=== PATIENT | female | born 1980 | race Caucasian/White ===

== ENCOUNTER 2018-09-21 23:10 | Inpatient (IN) | payer BC ==
[2018-09-22] MEDS ORDERED: CATAPRES ONE (00:19)
[2018-09-22] MEDS ORDERED: CATAPRES PO ONE (00:19)
[2018-09-22 00:50] LABS: Basophils # (Auto) 0.1 K/mm3 (0.0-0.1); Basophils % (Auto) 1.5 % (0.0-1.8); Eosinophils # (Auto) 0.1 K/mm3 (0.0-0.4); Eosinophils % (Auto) 2.6 % (0.0-4.3); Hematocrit 27.2 % (30.3-42.9); Hemoglobin 8.4 gm/dl (10.1-14.3); Lymphocytes # (Auto) 1.7 K/mm3 (1.2-5.4); Mean Corpuscular HGB Conc 31 % (30-34); Monocytes # (Auto) 0.3 K/mm3 (0.0-0.8); Monocytes % (Auto) 7.3 % (0.0-7.3); Platelet Count 288 K/mm3 (140-440); Red Blood Count 3.98 M/mm3 (3.65-5.03)
[2018-09-22 00:52] LABS: Mean Corpuscular Volume 69 fl (79-97); Red Cell Distribution Width 22.3 % (13.2-15.2)
[2018-09-22 02:03] LABS: Calcium 9.2 mg/dL (8.4-10.2)
--- NOTE | 2018-09-22 02:10 | Emergency Department Report ---
ED Shortness of Breath HPI - General Chief Complaint: Dyspnea/Respdistress Stated Complaint: GLORIA/CHEST TIGHTNESS/COUGH Time Seen by Provider: 09/22/18 01:02 Source: patient Mode of arrival: Ambulatory Limitations: No Limitations - History of Present Illness Initial Comments: 38-year-old female with no past medical history presents to ED with worsening s hortness of breath over the last 2 weeks. Patient states symptoms initially began approximately 6 months ago, but have been intermittent. Patient reports over the last 2 weeks she is having worsening dyspnea, orthopnea, dry cough. Denies fever and chest pain. Denies leg pain and swelling. No PCP MD Complaint: shortness of breath -: week(s) (2) Severity: moderate Consistency: intermittent Worsens With: lying flat, exertion Treatments Prior to Arrival: none - Related Data Home Medications Medication Instructions Recorded Confirmed Last Taken No Known Home Medications [No 09/22/18 09/22/18 Unknown Reported Home Medications] Allergies Allergy/AdvReac Type Severity Reaction Status Date / Time No Known Allergies Allergy Unverified 09/21/18 23:13 ED Review of Systems ROS: Stated complaint: GLORIA/CHEST TIGHTNESS/COUGH Other details as noted in HPI Comment: All other systems reviewed and negative Constitutional: denies: chills, fever Respiratory: cough, orthopnea, SOB with exertion, wheezing Cardiovascular: denies: chest pain Musculoskeletal: other (denies leg pain and swelling) ED Past Medical Hx - Past Medical History Previous Medical History?: No - Surgical History Past Surgical History?: No - Social History Smoking Status: Never Smoker Substance Use Type: None - Medications Home Medications: Home Medications Medication Instructions Recorded Confirmed Last Taken Type No Known Home Medications [No 09/22/18 09/22/18 Unknown History Reported Home Medications] ED Physical Exam - General Limitations: No Limitations General appearance: alert, in no apparent distress - Head Head exam: Present: atraumatic, normocephalic - Eye Eye exam: Present: normal appearance - ENT ENT exam: Present: mucous membranes moist - Neck Neck exam: Present: normal inspection - Respiratory Respiratory exam: Present: normal lung sounds bilaterally. Absent: respiratory distress - Cardiovascular Cardiovascular Exam: Present: regular rate, normal rhythm - GI/Abdominal GI/Abdominal exam: Present: soft. Absent: distended, tenderness - Extremities Exam Extremities exam: Absent: pedal edema, calf tenderness - Neurological Exam Neurological exam: Present: alert, oriented X3 - Psychiatric Psychiatric exam: Present: normal affect, normal mood - Skin Skin exam: Present: warm, dry, intact, normal color ED Course Vital Signs 09/21/18 09/22/18 09/22/18 23:30 00:05 00:20 Temperature 98.3 F 98.3 F Pulse Rate 93 H 93 H 93 H Respiratory 18 24 Rate Blood Pressure 191/121 200/133 200/133 Blood Pressure [Left] O2 Sat by Pulse 100 100 Oximetry 09/22/18 09/22/18 09/22/18 00:45 00:48 01:00 Temperature Pulse Rate 100 H Respiratory 16 Rate Blood Pressure 198/130 Blood Pressure 209/107 [Left] O2 Sat by Pulse 100 100 100 Oximetry 09/22/18 09/22/18 09/22/18 01:15 01:30 01:45 Temperature Pulse Rate Respiratory Rate Blood Pressure 189/127 191/122 193/125 Blood Pressure [Left] O2 Sat by Pulse 100 100 100 Oximetry 09/22/18 09/22/18 09/22/18 02:03 02:15 02:30 Temperature Pulse Rate Respiratory Rate Blood Pressure 193/125 193/125 183/116 Blood Pressure [Left] O2 Sat by Pulse 100 100 100 Oximetry 09/22/18 09/22/18 09/22/18 02:45 03:00 03:15 Temperature Pulse Rate Respiratory Rate Blood Pressure 172/109 177/108 169/108 Blood Pressure [Left] O2 Sat by Pulse 100 100 100 Oximetry 09/22/18 09/22/18 09/22/18 03:30 03:45 04:00 Temperature Pulse Rate Respiratory Rate Blood Pressure 167/105 161/97 172/113 Blood Pressure [Left] O2 Sat by Pulse 100 99 99 Oximetry 09/22/18 09/22/18 09/22/18 04:15 04:30 05:39 Temperature Pulse Rate Respiratory 18 Rate Blood Pressure 164/96 161/97 Blood Pressure [Left] O2 Sat by Pulse 100 100 98 Oximetry ED Medical Decision Making - Lab Data Result diagrams: 09/22/18 00:29 09/22/18 00:29 - EKG Data -: EKG Interpreted by Co EKG shows normal: sinus rhythm, axis, intervals, QRS complexes Rate: normal - EKG Data Interpretation: other (inferolateral T wave inversions) - Radiology Data Radiology results: report reviewed, image reviewed - Medical Decision Making - 2 wk hx of worsening TIJERINA, nonproductive cough - also reports, PND and orthopnea - no leg swelling - pt severely hypertensive, 190s/100s; hydralazine given - EKG shows LVH, T wave inversions; trop normal - BNP 3,800 w/ cardiomegaly - CTA neg for PE, but does show small amt of pulmonary edema - likely new onset CHF given symptoms, uncontrolled HTN, elevated BNP - will admit to hospitalist for further workup - Differential Diagnosis pneumonia, pulm edema, PE Critical Care Time: Yes Critical care time in (mins) excluding proc time.: 35 Critical care attestation.: If time is entered above; I have spent that time in minutes in the direct care of this critically ill patient, excluding procedure time. Critical Care Time: 35 minutes ED Disposition Clinical Impression: Hypertensive urgency, New onset of congestive heart failure Disposition: OP ADMIT IP TO THIS HOSP Is pt being admited?: Yes Condition: Stable Referrals: MARCELO MANDUJANO MD [Primary Care Provider] - 3-5 Days Time of Disposition: 05:39
--- NOTE | 2018-09-22 02:27 | XRay Report ---
PROCEDURE: XR CHEST ROUTINE 2V TECHNIQUE: PA and lateral chest radiographs were obtained. HISTORY: GLORIA COMPARISONS: None. FINDINGS: Heart: Normal. Mediastinum/Vessels: Normal. Lungs/Pleural space: Lungs are expanded. There are no infiltrates, effusions or pneumothoraces.. Bony thorax: No acute osseous abnormality. IMPRESSION: Normal examination. This document is electronically signed by Hunter Collins MD., September 22 2018 02:25:30 AM ET
[2018-09-22] MEDS ORDERED: APRESOLINE IV ONE (02:54)
[2018-09-22 03:50] LABS: INR 0.95 (0.87-1.13)
[2018-09-22 03:51] LABS: Partial Thromboplastin Time 30.3 Sec. (24.2-36.6)
--- NOTE | 2018-09-22 05:32 | Cat Scan Report ---
PROCEDURE: CT ANGIOGRAM OF THE CHEST FOR PULMONARY EMBOLISM TECHNIQUE: Computerized axial tomographic angiography of the chest and pulmonary arteries was perfor med after the IV injection of iodinated nonionic contrast. The image data was postprocessed using max imum intensity projection (MIP) and 2-dimensional multiplanar reformatted (MPR) techniques. The exami nation is specifically tailored to the evaluation of the pulmonary arteries per clinical request. Au tomated exposure control, adjustment of mA and/or kV according to patient size, or iterative reconstr uction dose optimization techniques were utilized. CPT G9637, 03038 HISTORY: Shortness of breath R06.02, chest pain unspecified R07.9 , COMPARISONS: None . FINDINGS: Heart and pericardium: Heart is borderline enlarged. There is no pericardial effusion.. Thoracic aorta: There is no thoracic aortic aneurysm or dissection.. Pulmonary vasculature: Normal. No pulmonary emboli. Lymph nodes: No enlarged thoracic lymph nodes. Lungs: The lungs are expanded and clear. There are no infiltrates. There is minimal pulmonary edema at the lung bases.. Pleural space: There are tiny pleural effusions. There is no pneumothorax.. Musculoskeletal structures: No significant abnormality. Upper abdominal structures: No significant abnormality. IMPRESSION: There is no pulmonary embolism.. This document is electronically signed by Hunter Collins MD., September 22 2018 05:30:12 AM ET
[2018-09-22] MEDS ORDERED: LASIX IV ONE (05:34)
--- NOTE | 2018-09-22 08:30 | History and Physical Report ---
History of Present Illness Date of examination: 09/22/18 Date of admission: 09/22/18 Chief complaint: Worsening shortness of breath for the last 2 weeks History of present illness: -year-old -[place] female patient with no significant past medical history presented to the emergency room with worsening shortness of breath of 2 weeks' duration. Patient has been having shortness of breath intermittently for the last 5-6 months however symptoms became worse last 2 weeks patient also complains of reduced effort tolerance orthopnea and mild cough Patient has no cardiac history, not on any medications Denies chest pain or palpitations, no nausea vomiting or abdominal pain No history of fever, no history of bronchial asthma or any respiratory problems Initial evaluation with chest x-ray is negative, elevated D dimers, CTA chest negative for PE No evidence of pulmonary congestion BNP was elevated,3842, first set of cardiac enzymes negative EKG no acute ST-T changes Past History Past Medical History: No medical history Past Surgical History: Other (tubal ligation) Social history: lives with family, alcohol abuse (occasional), full code. denies: smoking, prescription drug abuse, IV drug use Family history: hypertension Medications and Allergies Allergies Allergy/AdvReac Type Severity Reaction Status Date / Time No Known Allergies Allergy Unverified 09/21/18 23:13 Home Medications Medication Instructions Recorded Confirmed Last Taken Type No Known Home Medications [No 09/22/18 09/22/18 Unknown History Reported Home Medications] Review of Systems Constitutional: fatigue, weakness, no weight loss, no weight gain, no fever, no chills Ears, nose, mouth and throat: no nasal congestion, no nasal discharge Cardiovascular: orthopnea, shortness of breath, dyspnea on exertion, no chest pain, no palpitations, no edema, no syncope, no paroxysmal nocturnal dyspnea Respiratory: cough, shortness of breath, dyspnea on exertion Gastrointestinal: no abdominal pain, no nausea, no vomiting Musculoskeletal: no myalgias, no arthritis Integumentary: no rash, no lesions Neurological: no seizures, no syncope Psychiatric: no anxiety, no depression Endocrine: no cold intolerance, no heat intolerance, no polydipsia, no polyuria Hematologic/Lymphatic: no easy bruising, no easy bleeding Allergic/Immunologic: no urticaria, no allergic rhinitis Exam - Constitutional Vitals: Temp Pulse Resp BP Pulse Ox 97.6 F 100 H 18 169/105 98 09/22/18 07:36 09/22/18 00:48 09/22/18 05:39 09/22/18 07:00 09/22/18 07:00 General appearance: Present: no acute distress, well-nourished - EENT Eyes: Present: PERRL, EOM intact - Neck Neck: Present: supple, normal ROM - Respiratory Respiratory: bilateral: diminished, negative: rales, rhonchi, wheezing - Cardiovascular Rhythm: regular Heart Sounds: Present: S1 & S2 - Extremities Extremities: no ischemia, No edema - Abdominal General gastrointestinal: Present: soft, non-tender, non-distended, normal bowel sounds - Integumentary Integumentary: Present: clear, warm - Musculoskeletal Musculoskeletal: strength equal bilaterally - Psychiatric Psychiatric: appropriate mood/affect, cooperative - Neurologic Neurologic: CNII-XII intact, moves all extremities Results - Labs CBC & Chem 7: 09/22/18 00:29 09/22/18 00:29 Labs: Abnormal lab results 09/22/18 09/22/18 09/22/18 Range/Units 00:29 00:29 01:39 WBC 4.1 L (4.5-11.0) K/mm3 Hgb 8.4 L (10.1-14.3) gm/dl Hct 27.2 L (30.3-42.9) % MCV 69 L (79-97) fl MCH 21 L (28-32) pg RDW 22.3 H (13.2-15.2) % Lymph % (Auto) 43.0 H (13.4-35.0) % D-Dimer 277.79 H (0-234) ng/mlDDU Carbon Dioxide 21 L (22-30) mmol/L NT-Pro-B Natriuret Pep (0-450) pg/mL 09/22/18 Range/Units 01:39 WBC (4.5-11.0) K/mm3 Hgb (10.1-14.3) gm/dl Hct (30.3-42.9) % MCV (79-97) fl MCH (28-32) pg RDW (13.2-15.2) % Lymph % (Auto) (13.4-35.0) % D-Dimer (0-234) ng/mlDDU Carbon Dioxide (22-30) mmol/L NT-Pro-B Natriuret Pep 3842 H (0-450) pg/mL Assessment and Plan --Possible cardiomyopathy; congestive heart failure Unknown ejection fraction, diuretics, beta blockers, guido inhibitors, nitrates as needed Input and output monitoring, low sodium diet, echocardiogram for LV function ejection fraction Cardiology evaluation if any abnormalities noted --Anemia; probably iron deficiency Iron panel, iron supplements, supportive care --Elevated D dimers; negative PE on CTA Check lower extremity Doppler to rule out DVT --DVT prophylaxis; Lovenox We'll monitor the patient closely and adjust management as needed
[2018-09-22] MEDS: ZESTRIL PO SCH (12:00)
[2018-09-22] MEDS: COREG PO SCH ×2 (12:00→21:20)
[2018-09-22] MEDS: PEPCID PO SCH ×2 (12:00→21:20)
[2018-09-22] MEDS: LOVENOX SUB-Q SCH (21:19)
[2018-09-22] MEDS ORDERED: TYLENOL PO PRN (22:21)
[2018-09-22] MEDS: CLARITIN PO SCH (22:26)
[2018-09-23] MEDS: COREG PO SCH ×2 (09:32→21:12)
[2018-09-23] MEDS: ZESTRIL PO SCH (09:32)
[2018-09-23] MEDS: LASIX IV SCH (09:33)
[2018-09-23] MEDS: PEPCID PO SCH ×2 (09:33→21:12)
--- NOTE | 2018-09-23 12:43 | Progress Note ---
Assessment and Plan Assessment and plan: --Upper respiratory symptoms and cough and congestion Antipyretics, antihistamine, cough medicine No need of antibiotics as patient is afebrile, no leukocytosis, chest x-ray normal --Possible cardiomyopathy; congestive heart failure Echocardiogram for ejection fraction, continue diuretics, beta blockers, guido inhibitors. Cardiology evaluation if any abnormalities noted on echo --Anemia; probably iron deficiency Iron panel, iron supplements, supportive care --Elevated D dimers; negative PE on CTA Check lower extremity Doppler to rule out DVT --DVT prophylaxis; Lovenox We'll monitor the patient closely and adjust management as needed. Patient is stable to be transferred out of telemetry to medical floor Plan of care reviewed with the patient and family member at the bedside and her nurse History Interval history: Patient seen and examined medical records reviewed Patient feels slightly better denies any chest pain or shortness of breath Complains of some cough and congestion Alert awake oriented 3 Vital signs noted Hospitalist Physical - Constitutional Vitals: Temp Pulse Resp BP Pulse Ox 98.3 F 82 18 154/95 98 09/23/18 09:00 09/23/18 09:00 09/23/18 09:00 09/23/18 09:00 09/23/18 09:00 General appearance: Present: no acute distress, well-nourished - EENT Eyes: Present: PERRL, EOM intact - Neck Neck: Present: supple, normal ROM - Respiratory Respiratory effort: normal Respiratory: bilateral: diminished, negative: rales, rhonchi, wheezing - Cardiovascular Rhythm: regular Heart Sounds: Present: S1 & S2 - Extremities Extremities: no ischemia, No edema - Abdominal General gastrointestinal: soft, non-tender, non-distended, normal bowel sounds - Integumentary Integumentary: Present: clear, warm - Psychiatric Psychiatric: appropriate mood/affect, cooperative - Neurologic Neurologic: CNII-XII intact, moves all extremities Results - Labs CBC & Chem 7: 09/22/18 00:29 09/22/18 00:29 Labs: Laboratory Last Values WBC 4.1 K/mm3 (4.5-11.0) L 09/22/18 00:29 RBC 3.98 M/mm3 (3.65-5.03) 09/22/18 00:29 Hgb 8.4 gm/dl (10.1-14.3) L 09/22/18 00:29 Hct 27.2 % (30.3-42.9) L 09/22/18 00:29 MCV 69 fl (79-97) L 09/22/18 00:29 MCH 21 pg (28-32) L 09/22/18 00:29 MCHC 31 % (30-34) 09/22/18 00: RDW 22.3 % (13.2-15.2) H 09/22/18 00:29 Plt Count 288 K/mm3 (140-440) 09/22/18 00:29 Lymph % (Auto) 43.0 % (13.4-35.0) H 09/22/18 00:29 [place] % (Auto) 7.3 % (0.0-7.3) 09/22/18 00: Eos % (Auto) 2.6 % (0.0-4.3) 09/22/18 00: Baso % (Auto) 1.5 % (0.0-1.8) 09/22/18 00: Lymph # 1.7 K/mm3 (1.2-5.4) 09/22/18 00:29 [place] # 0.3 K/mm3 (0.0-0.8) 09/22/18 00:29 Eos # 0.1 K/mm3 (0.0-0.4) 09/22/18 00: Baso # 0.1 K/mm3 (0.0-0.1) 09/22/18 00: Seg Neutrophils % 45.6 % (40.0-70.0) 09/22/18 00: Seg Neutrophils # 1.9 K/mm3 (1.8-7.7) 09/22/18 00:29 PT 13.3 Sec. (12.2-14.9) 09/22/18 01:39 INR 0.95 (0.87-1.13) 09/22/18 01:39 APTT 30.3 Sec. (24.2-36.6) 09/22/18 01:39 D-Dimer 277.79 ng/mlDDU (0-234) H 09/22/18 01:39 Sodium 139 mmol/L (137-145) 09/22/18 00:29 Potassium 3.8 mmol/L (3.6-5.0) 09/22/18 00:29 Chloride 104.2 mmol/L (98-107) 09/22/18 00:29 Carbon Dioxide 21 mmol/L (22-30) L 09/22/18 00:29 Anion Gap 18 mmol/L 09/22/18 00:29 BUN 17 mg/dL (7-17) 09/22/18 00:29 Creatinine 1.2 mg/dL (0.7-1.2) 09/22/18 00:29 Estimated GFR 50 ml/min 09/22/18 00:29 BUN/Creatinine Ratio 14 % 09/22/18 00:29 Glucose 82 mg/dL (65-100) 09/22/18 00:29 Calcium 9.2 mg/dL (8.4-10.2) 09/22/18 00:29 Troponin T < 0.010 ng/mL (0.00-0.029) 09/22/18 01:39 NT-Pro-B Natriuret Pep 3842 pg/mL (0-450) H 09/22/18 01:39 HCG, Qual Negative (Negative) 09/22/18 00:29 Active Medications - Current Medications Current Medications: Generic Name Dose Route Start Last Admin Trade Name Freq PRN Reason Stop Dose Admin Acetaminophen 650 mg 09/22/18 22:21 09/22/18 22:25 Tylenol PO 650 mg Q4H PRN Administration Pain, Mild (1-3) Carvedilol 6.25 mg 09/22/18 10:00 09/23/18 09:32 Coreg PO 6.25 mg BID CELSO Administration Enoxaparin Sodium 40 mg 09/22/18 22:00 09/22/18 21:19 Lovenox SUB-Q 40 mg QDAY@2200 CELOS Administration Famotidine 10 mg 09/23/18 10:00 09/23/18 09:33 Pepcid PO 10 mg BID CELSO Administration Furosemide 40 mg 09/23/18 10:00 09/23/18 09:33 Lasix IV 40 mg QDAY CELSO Administration Lisinopril 10 mg 09/22/18 10:00 09/23/18 09:32 Zestril PO 10 mg QDAY CELSO Administration Loratadine 10 mg 09/22/18 22:20 09/22/18 22:26 Claritin PO Not Given QDAY CELSO
[2018-09-23] MEDS: CLARITIN PO SCH (13:45)
--- NOTE | 2018-09-23 17:30 | Vascular Lab Report ---
PROCEDURE: VL VENOUS DUPLEX LE BILAT TECHNIQUE: Ultrasound deep venous system bilateral lower extremities HISTORY: elevated d dimers, evaluate for DVT COMPARISONS: FINDINGS: Ultrasound deep venous system bilateral lower extremities demonstrates normal sonographic appearance of the deep venous system from the common femoral through the popliteal and visualized calf veins. No rmal vascular waveforms on pulsed and color Doppler evaluation IMPRESSION: Negative. No evidence for deep venous thrombosis. This document is electronically signed by Wayne Garcia MD., September 23 2018 05:28:53 PM ET
[2018-09-23] MEDS: LOVENOX SUB-Q SCH (21:12)
[2018-09-23] MEDS: TESSALON PERLES PO SCH (21:12)
[2018-09-24] MEDS: TESSALON PERLES PO SCH ×2 (05:30→15:28)
[2018-09-24] MEDS: COREG PO SCH ×2 (10:08→21:31)
[2018-09-24] MEDS: CLARITIN PO SCH (10:08)
[2018-09-24] MEDS: LASIX IV SCH (10:08)
[2018-09-24] MEDS: ZESTRIL PO SCH (10:09)
[2018-09-24] MEDS: PEPCID PO SCH ×2 (10:09→21:31)
--- NOTE | 2018-09-24 11:24 | Progress Note ---
Assessment and Plan Assessment and plan: --Upper respiratory symptoms and cough and congestion Antipyretics, antihistamine, cough medicine Zithromax, supportive care --Possible cardiomyopathy; congestive heart failure Echocardiogram for ejection fraction, continue diuretics, beta blockers, guido inhibitors. Low-sodium diet, fluid restriction, cardiology evaluation if needed --Anemia; probably iron deficiency Iron panel, iron supplements, supportive care --Elevated D dimers; negative PE , negative JVD --DVT prophylaxis; Lovenox We'll monitor the patient closely and adjust management as needed. Patient is stable to be transferred out of telemetry to medical floor Plan of care reviewed with the patient and family member at the bedside and her nurse History Interval history: Patient seen and examined and medical records. Patient feels better mild upper respiratory symptoms and cough Alert awake oriented 3 not in acute distress vital signs noted Hospitalist Physical - Constitutional Vitals: Temp Pulse Resp BP Pulse Ox 98.3 F 88 18 151/90 100 09/24/18 09:05 09/24/18 09:19 09/24/18 09:05 09/24/18 09:05 09/24/18 09:05 General appearance: Present: no acute distress, well-nourished - EENT Eyes: Present: PERRL, EOM intact - Neck Neck: Present: supple, normal ROM - Respiratory Respiratory effort: normal Respiratory: bilateral: diminished, rales, negative: rhonchi, wheezing - Cardiovascular Rhythm: regular Heart Sounds: Present: S1 & S2 - Extremities Extremities: no ischemia, No edema - Abdominal General gastrointestinal: soft, non-tender, non-distended, normal bowel sounds - Integumentary Integumentary: Present: clear, warm - Psychiatric Psychiatric: appropriate mood/affect, cooperative - Neurologic Neurologic: CNII-XII intact, moves all extremities Results - Labs CBC & Chem 7: 09/22/18 00:29 09/22/18 00:29 Labs: Laboratory Last Values WBC 4.1 K/mm3 (4.5-11.0) L 09/22/18 00:29 RBC 3.98 M/mm3 (3.65-5.03) 09/22/18 00:29 Hgb 8.4 gm/dl (10.1-14.3) L 09/22/18 00:29 Hct 27.2 % (30.3-42.9) L 09/22/18 00:29 MCV 69 fl (79-97) L 09/22/18 00:29 MCH 21 pg (28-32) L 09/22/18 00:29 MCHC 31 % (30-34) 09/22/18 00: RDW 22.3 % (13.2-15.2) H 09/22/18 00:29 Plt Count 288 K/mm3 (140-440) 09/22/18 00:29 Lymph % (Auto) 43.0 % (13.4-35.0) H 09/22/18 00:29 [place] % (Auto) 7.3 % (0.0-7.3) 09/22/18 00: Eos % (Auto) 2.6 % (0.0-4.3) 09/22/18 00: Baso % (Auto) 1.5 % (0.0-1.8) 09/22/18 00: Lymph # 1.7 K/mm3 (1.2-5.4) 09/22/18 00:29 [place] # 0.3 K/mm3 (0.0-0.8) 09/22/18 00:29 Eos # 0.1 K/mm3 (0.0-0.4) 09/22/18 00:29 Baso # 0.1 K/mm3 (0.0-0.1) 09/22/18 00:29 Seg Neutrophils % 45.6 % (40.0-70.0) 09/22/18 00: Seg Neutrophils # 1.9 K/mm3 (1.8-7.7) 09/22/18 00:29 PT 13.3 Sec. (12.2-14.9) 09/22/18 01:39 INR 0.95 (0.87-1.13) 09/22/18 01:39 APTT 30.3 Sec. (24.2-36.6) 09/22/18 01:39 D-Dimer 277.79 ng/mlDDU (0-234) H 09/22/18 01:39 Sodium 139 mmol/L (137-145) 09/22/18 00:29 Potassium 3.8 mmol/L (3.6-5.0) 09/22/18 00:29 Chloride 104.2 mmol/L (98-107) 09/22/18 00:29 Carbon Dioxide 21 mmol/L (22-30) L 09/22/18 00:29 Anion Gap 18 mmol/L 09/22/18 00:29 BUN 17 mg/dL (7-17) 09/22/18 00:29 Creatinine 1.2 mg/dL (0.7-1.2) 04 00:29 Estimated GFR 50 ml/min 09/22/18 00:29 BUN/Creatinine Ratio 14 % 09/22/18 00:29 Glucose 82 mg/dL (65-100) 09/22/18 00:29 Calcium 9.2 mg/dL (8.4-10.2) 09/22/18 00:29 Troponin T < 0.010 ng/mL (0.00-0.029) 09/22/18 01:39 NT-Pro-B Natriuret Pep 3842 pg/mL (0-450) H 09/22/18 01:39 HCG, Qual Negative (Negative) 09/22/18 00:29 Active Medications - Current Medications Current Medications: Generic Name Dose Route Start Last Admin Trade Name Freq PRN Reason Stop Dose Admin Acetaminophen 650 mg 09/22/18 22:21 09/22/18 22:25 Tylenol PO 650 mg Q4H PRN Administration Pain, Mild (1-3) Benzonatate 100 mg 09/23/18 22:00 09/24/18 05:30 Tessalon Perles PO 100 mg Q8HR CELSO Administration Carvedilol 6.25 mg 09/22/18 10:00 09/24/18 10:08 Coreg PO 6.25 mg BID CELSO Administration Enoxaparin Sodium 40 mg 09/22/18 22:00 09/23/18 21:12 Lovenox SUB-Q 40 mg QDAY@2200 CELSO Administration Famotidine 10 mg 09/23/18 10:00 09/24/18 10:09 Pepcid PO 10 mg BID CELSO Administration Furosemide 40 mg 09/23/18 10:00 09/24/18 10:08 Lasix IV 40 mg QDAY CELSO Administration Lisinopril 10 mg 09/22/18 10:00 09/24/18 10:09 Zestril PO 10 mg QDAY CELSO Administration Loratadine 10 mg 09/22/18 22:20 09/24/18 10:08 Claritin PO 10 mg QDAY CELSO Administration
[2018-09-24] MEDS ORDERED: ZITHROMAX PO ONE (14:00)
[2018-09-24] MEDS: LOVENOX SUB-Q SCH (21:36)
[2018-09-25 05:55] LABS: Basophils # (Auto) 0.1 K/mm3 (0.0-0.1); Basophils % (Auto) 1.4 % (0.0-1.8); Eosinophils # (Auto) 0.1 K/mm3 (0.0-0.4); Eosinophils % (Auto) 3.1 % (0.0-4.3); Hemoglobin 8.2 gm/dl (10.1-14.3); Lymphocytes # (Auto) 1.7 K/mm3 (1.2-5.4); Lymphocytes % (Auto) 35.9 % (13.4-35.0); Mean Corpuscular HGB Conc 31 % (30-34); Monocytes # (Auto) 0.4 K/mm3 (0.0-0.8); Monocytes % (Auto) 9.5 % (0.0-7.3); Platelet Count 268 K/mm3 (140-440); Red Blood Count 3.81 M/mm3 (3.65-5.03)
[2018-09-25 06:04] LABS: Mean Corpuscular Volume 68 fl (79-97); Red Cell Distribution Width 21.9 % (13.2-15.2)
[2018-09-25 06:08] LABS: Calcium 8.5 mg/dL (8.4-10.2)
[2018-09-25] MEDS: ZESTRIL PO SCH (10:06)
[2018-09-25] MEDS: PEPCID PO SCH ×2 (10:06→21:42)
[2018-09-25] MEDS: ZITHROMAX PO SCH (10:06)
[2018-09-25] MEDS: LASIX IV SCH (10:06)
[2018-09-25] MEDS: CLARITIN PO SCH (10:06)
[2018-09-25] MEDS: COREG PO SCH ×2 (10:07→21:41)
[2018-09-25] MEDS ORDERED: APRESOLINE IV PRN (11:23)
--- NOTE | 2018-09-25 11:25 | Progress Note ---
Assessment and Plan Assessment and plan: --Newly Diagnosed cardiomyopathy; LVEF 25-30% Continue Lasix, beta blockers, Kelton inhibitors, input output monitoring Low-sodium diet, fluid restriction, cardiology consult --Anemia; probably iron deficiency Iron panel, iron supplements, supportive care --Upper respiratory symptoms and cough and congestion Antipyretics, antihistamine, cough medicine Zithromax, supportive care --Hypertension; moderate control, continue beta blockers and kelton inhibitors hydralazine --Elevated D dimers; negative PE , negative JVD --DVT prophylaxis; Lovenox Continue current management Follow-up cardiology evaluation and recommendations Possible discharge in 1-2 days if stable Plan of care reviewed with the patient and her nurse History Interval history: Patient seen and examined, medical records reviewed Patient feels better no new complaints Echocardiogram revealed 25-30% ejection fraction Patient has no cardiac history Alert awake oriented 3 Vital signs noted Hospitalist Physical - Constitutional Vitals: Temp Pulse Resp BP Pulse Ox 98.2 F 88 18 168/104 100 09/25/18 08:32 09/25/18 10:07 09/25/18 10:41 09/25/18 10:07 09/25/18 08:32 General appearance: Present: no acute distress, well-nourished - EENT Eyes: Present: PERRL, EOM intact - Neck Neck: Present: supple, normal ROM - Respiratory Respiratory effort: normal Respiratory: bilateral: diminished, negative: rales, rhonchi, wheezing - Cardiovascular Rhythm: regular Heart Sounds: Present: S1 & S2 - Extremities Extremities: no ischemia, No edema - Abdominal General gastrointestinal: soft, non-tender, non-distended, normal bowel sounds - Integumentary Integumentary: Present: clear, warm - Psychiatric Psychiatric: appropriate mood/affect, cooperative - Neurologic Neurologic: CNII-XII intact, moves all extremities Results - Labs CBC & Chem 7: 09/25/18 04:50 09/25/18 04:50 Labs: Laboratory Last Values WBC 4.7 K/mm3 (4.5-11.0) 09/25/18 04:50 RBC 3.81 M/mm3 (3.65-5.03) 09/25/18 04:50 Hgb 8.2 gm/dl (10.1-14.3) L 09/25/18 04:50 Hct 26.0 % (30.3-42.9) L 09/25/18 04:50 MCV 68 fl (79-97) L 09/25/18 04:50 MCH 21 pg (28-32) L 09/25/18 04:50 MCHC 31 % (30-34) 09/25/18 04:50 RDW 21.9 % (13.2-15.2) H 09/25/18 04:50 Plt Count 268 K/mm3 (140-440) 09/25/18 04:50 Lymph % (Auto) 35.9 % (13.4-35.0) H 09/25/18 04:50 [place] % (Auto) 9.5 % (0.0-7.3) H 09/25/18 04:50 Eos % (Auto) 3.1 % (0.0-4.3) 09/25/18 04:50 Baso % (Auto) 1.4 % (0.0-1.8) 09/25/18 04:50 Lymph # 1.7 K/mm3 (1.2-5.4) 09/25/18 04:50 [place] # 0.4 K/mm3 (0.0-0.8) 09/25/18 04:50 Eos # 0.1 K/mm3 (0.0-0.4) 09/25/18 04:50 Baso # 0.1 K/mm3 (0.0-0.1) 09/25/18 04:50 Seg Neutrophils % 50.1 % (40.0-70.0) 09/25/18 04:50 Seg Neutrophils # 2.3 K/mm3 (1.8-7.7) 09/25/18 04:50 PT 13.3 Sec. (12.2-14.9) 09/22/18 01:39 INR 0.95 (0.87-1.13) 09/22/18 01:39 APTT 30.3 Sec. (24.2-36.6) 09/22/18 01:39 D-Dimer 277.79 ng/mlDDU (0-234) H 09/22/18 01:39 Sodium 137 mmol/L (137-145) 09/25/18 04:50 Potassium 4.3 mmol/L (3.6-5.0) 09/25/18 04:50 Chloride 102.1 mmol/L (98-107) 09/25/18 04:50 Carbon Dioxide 24 mmol/L (22-30) 09/25/18 04:50 Anion Gap 15 mmol/L 09/25/18 04:50 BUN 19 mg/dL (7-17) H 09/25/18 04:50 Creatinine 1.2 mg/dL (0.7-1.2) 09/25/18 04:50 Estimated GFR 50 ml/min 09/25/18 04:50 BUN/Creatinine Ratio 16 % 09/25/18 04:50 Glucose 83 mg/dL (65-100) 09/25/18 04:50 Calcium 8.5 mg/dL (8.4-10.2) 09/25/18 04:50 Troponin T < 0.010 ng/mL (0.00-0.029) 09/22/18 01:39 NT-Pro-B Natriuret Pep 674.2 pg/mL (0-450) H 09/25/18 04:50 HCG, Qual Negative (Negative) 09/22/18 00:29 Active Medications - Current Medications Current Medications: Generic Name Dose Route Start Last Admin Trade Name Freq PRN Reason Stop Dose Admin Acetaminophen 650 mg 09/22/18 22:21 09/22/18 22:25 Tylenol PO 650 mg Q4H PRN Administration Pain, Mild (1-3) Azithromycin 250 mg 09/25/18 10:00 09/25/18 10:06 Zithromax PO 250 mg QDAY CELSO Administration Carvedilol 6.25 mg 09/22/18 10:00 09/25/18 10:07 Coreg PO 6.25 mg BID CELSO Administration Enoxaparin Sodium 40 mg 09/22/18 22:00 09/24/18 21:36 Lovenox SUB-Q 40 mg QDAY@2200 CELSO Administration Famotidine 10 mg 09/23/18 10:00 09/25/18 10:06 Pepcid PO 10 mg BID CELSO Administration Furosemide 40 mg 09/23/18 10:00 09/25/18 10:06 Lasix IV 40 mg QDAY CELSO Administration Guaifenesin 10 ml 09/24/18 20:20 Guaifenesin Dm Syrup PO Q4H PRN Cough Hydralazine HCl 25 mg 09/25/18 14:00 Apresoline PO Q8HR CELSO Hydralazine HCl 10 mg 09/25/18 11:23 Apresoline IV Q4H PRN Hypertension Lisinopril 10 mg 09/22/18 10:00 09/25/18 10:06 Zestril PO 10 mg QDAY CELSO Administration Lisinopril 40 mg 09/26/18 10:00 Zestril PO DAILY CELSO Loratadine 10 mg 09/22/18 22:20 09/25/18 10:06 Claritin PO 10 mg QDAY CELSO Administration
[2018-09-25] MEDS ORDERED: APRESOLINE PO SCH (14:00)
[2018-09-25 14:34] LABS: Iron 17 ug/dL (37-170); Total Iron Binding Capacity 382 mcg/dL (250-450)
[2018-09-25 14:35] LABS: % Iron Saturation 4.04 %
--- NOTE | 2018-09-25 18:46 | Event Note ---
Date: 09/25/18 Radio Announcer advised to add spiranolactone to the treatment plan. Spiranolactone 12.5 mg added,Pending cardiology evaluation. Will f/u cardiology evaln and recommendations. Possible discharge home tomorrow if stable.
[2018-09-25] MEDS: ALDACTONE PO SCH (18:51)
--- NOTE | 2018-09-25 19:16 | Consultation ---
History of Present Illness Consult date: 09/25/18 Consult reason: congestive heart failure, shortness of breath History of present illness: The patient is a 38-year-old woman with a long history of hypertension, for which she states she managed conservatively. She presented to the hospital 3 days ago with shortness of breath. Chest x-ray showed cardiomegaly, but minimal to no significant interstitial edema. EKG was in normal sinus rhythm, left ventricular hypertrophy and nonspecific repolarization abnormalities of LVH. An echocardiogram was ordered which showed a dilated cardiomyopathy, ejection fraction 25-30%. This is a new finding, with no prior history. The patient has responded to diuretic therapy and blood pressure control while in the hospital. Today, she looks and feels well, wants to go home. There is no chest pain, no palpitations, no lower extremity edema. No history of syncope. Past History Past Medical History: hypertension Past Surgical History: Other (tubal ligation) Social history: lives with family, alcohol abuse (occasional), full code. denies: smoking, prescription drug abuse, IV drug use Family history: hypertension Medications and Allergies Allergies Allergy/AdvReac Type Severity Reaction Status Date / Time No Known Allergies Allergy Unverified 09/21/18 23:13 Home Medications Medication Instructions Recorded Confirmed Last Taken Type No Known Home Medications [No 09/22/18 09/22/18 Unknown History Reported Home Medications] Active Meds: Active Medications Acetaminophen (Tylenol) 650 mg PO Q4H PRN PRN Reason: Pain, Mild (1-3) Last Admin: 09/22/18 22:25 Dose: 650 mg Documented by: Azithromycin (Zithromax) 250 mg PO QDAY [facility] Last Admin: 09/25/18 10:06 Dose: 250 mg Documented by: Carvedilol (Coreg) 6.25 mg PO BID [facility] Last Admin: 09/25/18 10:07 Dose: 6.25 mg Documented by: Enoxaparin Sodium (Lovenox) 40 mg SUB-Q QDAY@2200 [facility] Last Admin: 09/24/18 21:36 Dose: 40 mg Documented by: Famotidine (Pepcid) 10 mg PO BID [facility] Last Admin: 09/25/18 10:06 Dose: 10 mg Documented by: Ferrous Sulfate (Feosol) 325 mg PO BID [facility] Furosemide (Lasix) 40 mg IV QDAY [facility] Last Admin: 09/25/18 10:06 Dose: 40 mg Documented by: Guaifenesin (Guaifenesin Dm Syrup) 10 ml PO Q4H PRN PRN Reason: Cough Hydralazine HCl (Apresoline) 10 mg IV Q4H PRN PRN Reason: Hypertension Lisinopril (Zestril) 20 mg PO QDAY [facility] Loratadine (Claritin) 10 mg PO QDAY [facility] Last Admin: 09/25/18 10:06 Dose: 10 mg Documented by: Spironolactone (Aldactone) 12.5 mg PO QDAY [facility] Last Admin: 09/25/18 18:51 Dose: 12.5 mg Documented by: Review of Systems Cardiovascular: shortness of breath, no chest pain, no orthopnea, no palpitations, no rapid/irregular heart beat, no edema, no syncope, no lightheadedness Physical Examination Vital Signs Temp Pulse Resp BP Pulse Ox 98.3 F 93 H 18 191/121 100 09/21/18 23:30 09/21/18 23:30 09/21/18 23:30 09/21/18 23:30 09/21/18 23:30 General appearance: no acute distress HEENT: Positive: PERRL Neck: Positive: neck supple Cardiac: Positive: Reg Rate and Rhythm Lungs: Positive: clear to auscultation Neuro: Positive: Grossly Intact Abdomen: Positive: Soft Female genitourinary: deferred Skin: Positive: Clear Extremities: Absent: edema Results 09/25/18 04:50 09/25/18 04:50 CBC 09/25/18 Range/Units 04:50 WBC 4.7 (4.5-11.0) K/mm3 RBC 3.81 (3.65-5.03) M/mm3 Hgb 8.2 L (10.1-14.3) gm/dl Hct 26.0 L (30.3-42.9) % Plt Count 268 (140-440) K/mm3 Lymph # 1.7 (1.2-5.4) K/mm3 [place] # 0.4 (0.0-0.8) K/mm3 Eos # 0.1 (0.0-0.4) K/mm3 Baso # 0.1 (0.0-0.1) K/mm3 Comprehensive Metabolic Panel 04/08/19 Range/Units 04:50 Sodium 137 (137-145) mmol/L Potassium 4.3 (3.6-5.0) mmol/L Chloride 102.1 (98-107) mmol/L Carbon Dioxide 24 (22-30) mmol/L BUN 19 H (7-17) mg/dL Creatinine 1.2 (0.7-1.2) mg/dL Glucose 83 (65-100) mg/dL Calcium 8.5 (8.4-10.2) mg/dL EKG interpretations - Telemetry EKG Rhythm: Sinus Rhythm Assessment and Plan - Patient Problems (1) Shortness of breath Current Visit: Yes Status: Acute Plan to address problem: Patient presented with shortness of breath and uncontrolled hypertension of long-standing, echocardiogram shows a new onset dilated cardiomyopathy. Recommend medical therapy with lisinopril, carvedilol, Lasix and spironolactone. Patient looks and feels well today, once to go home and follow-up as an outpatient. We'll plan outpatient thallium stress test, otherwise continue guideline directed medical therapy for what appears to be a likely nonischemic cardiomyopathy.
[2018-09-25] MEDS: FEOSOL PO SCH (21:42)
[2018-09-25] MEDS: LOVENOX SUB-Q SCH (21:43)
--- NOTE | 2018-09-26 07:48 | Discharge Summary ---
Providers - Providers Date of Admission: 09/22/18 07:02 Date of discharge: 09/26/18 Attending physician: CELESTE YADAV 09/25/18 13:27 Consult to Physician [CONS] Routine Comment: Consulting Provider: DIXIE FRANKLIN Physician Instructions: Reason For Exam: Newly diagnosed Cardiomyopathy [EF 25-30%] Primary care physician: [facility], [place] Hospitalization Reason for admission: chest tightness/shortness of breath Condition: Stable Pertinent studies: Chest x-ray CTA chest Lower extremity venous Doppler Echocardiogram Hospital course: 38-year-old female patient with no significant past medical history not on any medications was admitted through emergency room\with worsening shortness of breath and atypical chest pain. Initial evaluation was consistent with elevated BNP and mild shortness of breath Patient was symptomatically managed with diuretics, beta blockers, kelton inhibitors Patient underwent echocardiogram which revealed new onset cardiomyopathy with ejection fraction of 25-2%. Cardiology was consulted, medications were optimized, cleared for discharge Follow-up in the office for further evaluation with possible stress test as outpatient The patient is comfortable in no new complaints Vital Signs noted physical examination is unremarkable Patient is hemodynamically and clinically stable at discharge Discharge diagnosis; --Newly Diagnosed cardiomyopathy; LVEF 25-30% Continue Lasix, beta blockers, Kelton inhibitors, input output monitoring Low-sodium diet, fluid restriction, cardiology consult --Anemia; probably iron deficiency Iron panel, iron supplements, supportive care --Upper respiratory symptoms and cough and congestion Antipyretics, antihistamine, cough medicine Zithromax, supportive care --Hypertension; moderate control, continue beta blockers and kelton inhibitors hydralazine --Elevated D dimers; negative PE , negative JVD --DVT prophylaxis; Lovenox Cleared by cardiology for discharge Follow-up per schedule, possible stress test as outpatient Disposition: TO HOME OR SELFCARE Time spent for discharge: 32 min Core Measure Documentation - Palliative Care Palliative Care/ Comfort Measures: Not Applicable - Core Measures Any of the following diagnoses?: heart failure - Heart Failure Discharge Requirements KELTON/ARB for LVSD if EF <40%: Yes Beta mohit at discharge: Yes Exam - Constitutional Vitals: Temp Pulse Resp BP Pulse Ox 98.0 F 84 18 132/94 99 09/26/18 04:20 09/26/18 04:20 09/26/18 04:20 09/26/18 04:20 09/26/18 04:20 General appearance: Present: no acute distress, well-nourished - EENT Eyes: Present: PERRL, EOM intact - Neck Neck: Present: supple, normal ROM - Respiratory Respiratory effort: normal Respiratory: bilateral: diminished, negative: rales, rhonchi, wheezing - Cardiovascular Rhythm: regular Heart Sounds: Present: S1 & S2 - Extremities Extremities: no ischemia, No edema - Abdominal General gastrointestinal: Present: soft, non-tender, non-distended - Integumentary Integumentary: Present: clear, warm - Musculoskeletal Musculoskeletal: strength equal bilaterally - Psychiatric Psychiatric: appropriate mood/affect, cooperative - Neurologic Neurologic: CNII-XII intact, moves all extremities Plan Activity: advance as tolerated Diet: low salt Additional Instructions: Advised to see topstitcher lockstitch as scheduled for possible outpatient stress test. Follow-up primary care physician in 3-4 days to monitor blood pressures and adjust medications Follow up with: MARCELO MANDUJANO MD [Primary Care Provider] - 3-5 Days DIXIE FRANKLIN MD [Staff Physician] - 7 Days Forms: Work/School Release Form Prescriptions: Spironolactone [Aldactone] 12.5 mg PO QDAY #30 tablet Carvedilol [Coreg] 12.5 mg PO BID #60 tablet Ferrous Sulfate [Feosol 325 MG tab] 325 mg PO BID #60 tablet guaiFENesin DM [Guaifenesin Dm Syrup] 10 ml PO Q4H PRN 10 Days oral.liqd PRN Reason: Cough Furosemide [Lasix TAB] 40 mg PO QDAY #30 tablet Lisinopril [Zestril TAB] 20 mg PO QDAY #30 tablet Azithromycin [Zithromax TAB] 250 mg PO QDAY #4 tablet
[2018-09-26] MEDS: LASIX IV SCH ×2 (09:48→09:52)
[2018-09-26] MEDS: COREG PO SCH (09:48)
[2018-09-26] MEDS: CLARITIN PO SCH (09:49)
[2018-09-26] MEDS: PEPCID PO SCH (09:49)
[2018-09-26] MEDS: ZITHROMAX PO SCH (09:49)
[2018-09-26] MEDS: ALDACTONE PO SCH (09:49)
[2018-09-26] MEDS: FEOSOL PO SCH (09:49)
[2018-09-26 09:52] VITALS: BP 162/97
[2018-09-26] MEDS ORDERED: ZESTRIL PO SCH ×2 (10:00)
--- NOTE | 2018-09-26 10:52 | Progress Note ---
Assessment and Plan Uncontrolled hypertension New onset dilated cardiomyopathy EF 25-30% by echocardiogram this admission Recommend Continue medical therapy for likely dilated nonischemic cardiomyopathy to include lisinopril, carvedilol, Lasix and spironolactone. Stable cardiac correa. Patient will f/u with [facility] as scheduled October 06 at 950a. We'll plan outpatient thallium stress test. Subjective Date of service: 09/26/18 Interval history: Patient has no complaints. For planned discharge home today. Objective Vital Signs Temp Pulse Resp BP BP Pulse Ox 09/26/18 09:50 162/97 09/26/18 09:49 162/97 09/26/18 09:48 162/97 09/26/18 09:15 97.9 F 78 16 159/104 100 09/26/18 08:51 163/108 09/26/18 04:20 98.0 F 84 18 132/94 99 09/25/18 23:52 98.0 F 84 20 134/83 100 09/25/18 22:29 18 09/25/18 22:00 89 09/25/18 19:31 98.0 F 86 20 160/107 100 09/25/18 18:51 88 150/102 09/25/18 15:59 98.4 F 87 20 131/82 100 09/25/18 13:41 82 18 130/83 09/25/18 13:40 82 130/83 - Physical Examination General: No Apparent Distress HEENT: Positive: PERRL Neck: Positive: neck supple Cardiac: Positive: Reg Rate and Rhythm Lungs: Positive: Decreased Breath Sounds Neuro: Positive: Grossly Intact Abdomen: Positive: Soft Extremities: Absent: edema
== END 2018-09-26 11:11 | disposition home or self-care (01) | DRG 304 ==
LOC: ED 23:10 → 4A 09-22 07:02
PROVIDERS: ADMIT Internal Medicine; ATTEND Internal Medicine
DX: I16.0 Hypertensive urgency (principal); I50.21 Acute systolic (congestive) heart failure; I42.0 Dilated cardiomyopathy; I11.0 Hypertensive heart disease with heart failure; I50.9 Heart failure, unspecified; R07.89 Other chest pain; D64.9 Anemia, unspecified; Z82.49 Family history of ischemic heart disease and other diseases of the circulatory system; Z98.51 Tubal ligation status
CPT/HCPCS: 36415; 71046; 71275; 80048; 83550; 83880; 84484; 84703; 85025; 85379; 85610; 85730; 93005; 93010; 93306; 93970; 96374; 96375; G0378; J0360; J1650; J1940; Q9967

== ENCOUNTER 2019-01-03 12:59 | Emergency (ER) | payer BC ==
[2019-01-03] MEDS ORDERED: ANTIVERT PO ONE (13:47)
--- NOTE | 2019-01-03 13:53 | Emergency Department Report ---
HPI - General Chief Complaint: Syncope Time Seen by Provider: 01/03/19 13:25 - HPI HPI: Room 18 The patient is a 38-year-old female presented with a chief complaint dizziness. The patient states this morning upon awakening she felt dizzy. Significant other states the patient was also diaphoretic. Patient denied having headache, chest pain or shortness of breath. Patient denies ever losing consciousness status she says intermittent dizziness. Patient states she does not notice a relationship with her symptoms and position. Patient denies any previous episodes of same. Patient denies history of fever. The patient states she was told she was anemic 2 months ago but stopped taking that aren't supplements secondary to the way they made her feel Location: [See above] Duration: [See above] Quality: [See above] Severity: [See above] Modifying factors: [see above] Context: [see above] Mode of transportation: [not driving] ED Past Medical Hx - Past Medical History Previous Medical History?: Yes Hx Hypertension: Yes Additional medical history: Systolic heart failure, EF 25-30% - Surgical History Past Surgical History?: No - Family History Family history: no significant - Social History Smoking Status: Never Smoker Substance Use Type: None (denies illicit drug use), Alcohol (occasional) - Medications Home Medications: Home Medications Medication Instructions Recorded Confirmed Last Taken Type Azithromycin [Zithromax TAB] 250 mg PO QDAY #4 tablet 09/26/18 Unknown Rx Carvedilol [Coreg] 12.5 mg PO BID #60 tablet 09/26/18 Unknown Rx Ferrous Sulfate [Feosol 325 MG tab] 325 mg PO BID #60 tablet 09/26/18 Unknown Rx Furosemide [Lasix TAB] 40 mg PO QDAY #30 tablet 09/26/18 Unknown Rx Lisinopril [Zestril TAB] 20 mg PO QDAY #30 tablet 09/26/18 Unknown Rx Spironolactone [Aldactone] 12.5 mg PO QDAY #30 tablet 09/26/18 Unknown Rx guaiFENesin DM [Guaifenesin Dm 10 ml PO Q4H PRN 10 Days oral.liqd 09/26/18 Unknown Rx Syrup] Meclizine [Antivert] 25 mg PO TID PRN #20 tablet 01/03/19 Unknown Rx Ondansetron [Zofran ODT TAB] 8 mg PO Q8HR #20 tab.rapdis 01/03/19 Unknown Rx diazePAM TAB [Valium] 5 mg PO BID PRN #5 tablet 01/03/19 Unknown Rx ED Review of Systems ROS: Stated complaint: HBP/DIZZY Other details as noted in HPI Constitutional: diaphoresis Eyes: denies: eye pain ENT: denies: throat pain Respiratory: denies: shortness of breath Cardiovascular: denies: chest pain Endocrine: no symptoms reported Gastrointestinal: nausea. denies: abdominal pain, vomiting Genitourinary: denies: dysuria Musculoskeletal: denies: back pain Neurological: vertigo. denies: headache Physical Exam - Physical Exam Vital Signs: Vital Signs 01/03/19 01/03/19 13:26 13:31 Pulse Rate 72 Respiratory 14 Rate Blood Pressure 136/84 [Right] O2 Sat by Pulse 100 Oximetry Physical Exam: GENERAL: The patient is well-developed well-nourished female lying on stretcher not appearing to be in acute distress. [] HEENT: Normocephalic. Atraumatic. Extraocular motions are intact. Patient has moist mucous membranes. No nystagmus noted NECK: Supple. Trachea midline CHEST/LUNGS: Clear to auscultation. There is no respiratory distress noted. HEART/CARDIOVASCULAR: Regular. There is no tachycardia. There is no gallop rub or murmur. ABDOMEN: Abdomen is soft, nontender. Patient has normal bowel sounds. There is no abdominal distention. SKIN: There is no rash. There is no edema. There is no diaphoresis. NEURO: The patient is awake, alert, and oriented. The patient is cooperative. The patient has no focal neurologic deficits. The patient has normal speech. Cranial nerves II through XII grossly intact, no drift. No dysmetria noted with [id number] bilaterally MUSCULOSKELETAL: There is no evidence of acute injury. ED Course Vital Signs 01/03/19 01/03/19 13:26 13:31 Pulse Rate 72 Respiratory 14 Rate Blood Pressure 136/84 [Right] O2 Sat by Pulse 100 Oximetry - Reevaluation(s) Reevaluation #1: 01/03/19 19:30 Patient states she feels better. Strong warnings given ED Medical Decision Making - Lab Data Result diagrams: 01/03/19 14:01 01/03/19 14:01 Laboratory Tests 07/01/03/19 01/03/19 14:01 14:01 14:01 WBC 2.6 L RBC 3.37 L Hgb 9.5 L Hct 28.4 L MCV 84 MCH 28 MCHC 33 RDW 22.3 H Plt Count 194 Add Manual Diff Complete Total Counted 100 Seg Neuts % (Manual) 48.0 Band Neutrophils % 0 Lymphocytes % (Manual) 41.0 H Reactive Lymphs % (Man) 0 Monocytes % (Manual) 7.0 Eosinophils % (Manual) 4.0 Basophils % (Manual) 0 Metamyelocytes % 0 Myelocytes % 0 Promyelocytes % 0 Blast Cells % 0 Nucleated RBC % Not Reportable Seg Neutrophils # Man 1.2 L Band Neutrophils # 0.0 Lymphocytes # (Manual) 1.1 L Abs React Lymphs (Man) 0.0 Monocytes # (Manual) 0.2 Eosinophils # (Manual) 0.1 Basophils # (Manual) 0.0 Metamyelocytes # 0.0 Myelocytes # 0.0 Promyelocytes # 0.0 Blast Cells # 0.0 WBC Morphology Not Reportable Hypersegmented Neuts Not Reportable Hyposegmented Neuts Not Reportable Hypogranular Neuts Not Reportable Smudge Cells Not Reportable Toxic Granulation Not Reportable Toxic Vacuolation Not Reportable Dohle Bodies Not Reportable Pelger-Huet Anomaly Not Reportable Damion Rods Not Reportable Platelet Estimate Consistent w auto Clumped Platelets Not Reportable Plt Clumps, EDTA Not Reportable Large Platelets 1+ Giant Platelets Not Reportable Platelet Satelliting Not Reportable Plt Morphology Comment Not Reportable RBC Morphology Not Reportable Dimorphic RBCs Not Reportable Polychromasia Not Reportable Hypochromasia Not Reportable Poikilocytosis 1+ Anisocytosis 1+ Microcytosis Not Reportable Macrocytosis Not Reportable Spherocytes Not Reportable Pappenheimer Bodies Not Reportable Sickle Cells Not Reportable Target Cells Not Reportable Tear Drop Cells Not Reportable Ovalocytes Not Reportable Helmet Cells Not Reportable [place] Bodies Not Reportable [place] Rings Not Reportable Hilario Cells Not Reportable Bite Cells Not Reportable Crenated Cell Not Reportable Elliptocytes Not Reportable Acanthocytes (Spur) Not Reportable Rouleaux Not Reportable Hemoglobin C Crystals Not Reportable Schistocytes Not Reportable Malaria parasites Not Reportable Joseph Bodies Not Reportable Hem Pathologist Commnt No PT INR APTT D-Dimer Sodium 135 L Potassium 4.4 Chloride 102.8 Carbon Dioxide 21 L Anion Gap 16 BUN 18 H Creatinine 1.2 Estimated GFR 50 BUN/Creatinine Ratio 15 Glucose 101 H Calcium 8.9 Total Bilirubin 0.30 0.30 Direct Bilirubin < 0.2 Indirect Bilirubin 0.1 AST 19 16 ALT 11 10 Alkaline Phosphatase 53 54 Troponin T < 0.010 NT-Pro-B Natriuret Pep 110.9 Total Protein 7.5 7.4 Albumin 3.9 3.9 Albumin/Globulin Ratio 1.1 1.1 Urine Color Urine Turbidity Urine pH Ur Specific [place] Urine Protein Urine Glucose (UA) Urine Ketones Urine Blood Urine Nitrite Urine Bilirubin Urine Urobilinogen Ur Leukocyte Esterase Urine WBC (Auto) Urine RBC (Auto) U Epithel Cells (Auto) Urine HCG, Qual 01/03/19 01/03/19 01/03/19 14:01 14:04 16:06 WBC RBC Hgb Hct MCV MCH MCHC RDW Plt Count Add Manual Diff Total Counted Seg Neuts % (Manual) Band Neutrophils % Lymphocytes % (Manual) Reactive Lymphs % (Man) Monocytes % (Manual) Eosinophils % (Manual) Basophils % (Manual) Metamyelocytes % Myelocytes % Promyelocytes % Blast Cells % Nucleated RBC % Seg Neutrophils # Man Band Neutrophils # Lymphocytes # (Manual) Abs React Lymphs (Man) Monocytes # (Manual) Eosinophils # (Manual) Basophils # (Manual) Metamyelocytes # Myelocytes # Promyelocytes # Blast Cells # WBC Morphology Hypersegmented Neuts Hyposegmented Neuts Hypogranular Neuts Smudge Cells Toxic Granulation Toxic Vacuolation Dohle Bodies Pelger-Huet Anomaly Damion Rods Platelet Estimate Clumped Platelets Plt Clumps, EDTA Large Platelets Giant Platelets Platelet Satelliting Plt Morphology Comment RBC Morphology Dimorphic RBCs Polychromasia Hypochromasia Poikilocytosis Anisocytosis Microcytosis Macrocytosis Spherocytes Pappenheimer Bodies Sickle Cells Target Cells Tear Drop Cells Ovalocytes Helmet Cells [place] Bodies [place] Rings Hilario Cells Bite Cells Crenated Cell Elliptocytes Acanthocytes (Spur) Rouleaux Hemoglobin C Crystals Schistocytes Malaria parasites Joseph Bodies Hem Pathologist Commnt PT 12.9 INR 1.00 APTT < 20.0 L D-Dimer 4775 H Sodium Potassium Chloride Carbon Dioxide Anion Gap BUN Creatinine Estimated GFR BUN/Creatinine Ratio Glucose Calcium Total Bilirubin Direct Bilirubin Indirect Bilirubin AST ALT Alkaline Phosphatase Troponin T NT-Pro-B Natriuret Pep Total Protein Albumin Albumin/Globulin Ratio Urine Color Yellow Urine Turbidity Clear Urine pH 7.0 Ur Specific [place] 1.021 Urine Protein <15 mg/dl Urine Glucose (UA) Neg Urine Ketones Neg Urine Blood Neg Urine Nitrite Neg Urine Bilirubin Neg Urine Urobilinogen < 2.0 Ur Leukocyte Esterase Sm Urine WBC (Auto) 10.0 H Urine RBC (Auto) 6.0 U Epithel Cells (Auto) 7.0 Urine HCG, Qual Negative - EKG Data -: EKG Interpreted by Me EKG shows normal: sinus rhythm Rate: normal - EKG Data When compared to previous EKG there are: previous EKG unavailable Interpretation: nonspecific ST-T wave dejan (flat T waves leads 1 and aVL) - Radiology Data Radiology results: report reviewed (CT head, CT chest), image reviewed (CT head, CT chest) [place] [id number] Cat Scan Report Signed Patient: KIKE GRANADOS MR#: [id number] : 1980 Acct:[id number] Age/Sex: 38 / F ADM Date: 01/03/19 Loc: ED Attending Dr: Ordering Physician: LUTHER ANDERS MD Date of Service: 01/03/19 Procedure(s): CT angio chest Accession Number(s): [id number] cc: LUTHER ANDERS MD CTA CHEST WITH IV CONTRAST INDICATION: Dizziness since this morning. Elevated d-dimer. TECHNIQUE: Axial CT images were obtained through the chest after injection of 100 mL Omnipaque 350 IV contrast. 3 plane MIP reconstructions were produced. All CT scans at this location are performed using CT dose reduction for ALARA by means of automated exposure control. COMPARISON: None available. FINDINGS: PULMONARY ARTERIES: We will opacified without visualization of thromboemboli. AORTA AND ARTERIES: No significant abnormality of the aorta or great vessels. No significant coronary atherosclerosis is seen. MEDIASTINUM: The thyroid gland is unremarkable as visualized. The trachea and main bronchi are patent and normal in caliber. No mass or lymphadenopathy is seen. The heart is normal in size without a pericardial effusion. LUNGS: No suspicious consolidation, nodule or mass. No pneumothorax or pleural effusion. ADDITIONAL FINDINGS: None. UPPER ABDOMEN: No acute findings. BONES: No significant osseous abnormality. IMPRESSION: 1. No CT evidence for pulmonary embolism. 2. No acute findings. Signer Name: Maikel Penaloza MD Signed: 01/03/2019 6:01 PM Workstation Name: [id number] Transcribed By: YONY Dictated By: Maikel Penaloza MD Electronically Authenticated By: Maikel Penaloza MD Signed Date/Time: 01/03/191800 DD/ 55 TD/TT: [facility] [address] [place] [address] Cat Scan Report Signed Patient: KIKE GRANADOS MR#: [id number] : 1980 Acct:[id number] Age/Sex: 38 / F ADM Date: 01/03/19 Loc: ED Attending Dr: Ordering Physician: LUTHER ANDERS MD Date of Service: 01/03/19 Procedure(s): CT head/brain wo con Accession Number(s): [id number] cc: LUTHER ANDERS MD CT head/brain wo con INDICATION: dizziness. TECHNIQUE: Routine CT head without contrast. Sagittal and coronal reformatted images were obtained. All CT scans at this location are performed using CT dose reduction for ALARA by means of automated exposure control. COMPARISON: FINDINGS: BRAIN / INTRACRANIAL CONTENTS: No acute hemorrhage, mass effect, midline shift, hydrocephalus, or acute, large territorial infarct. No chronic infarct or focal atrophy. Normal brain volume and ventricular/sulcal size for age. No significant white matter abnormality. CRANIOCERVICAL JUNCTION: No significant abnormality. ORBITS: No significant abnormality of visualized orbits. SINUSES / MASTOIDS: No significant abnormality of the visualized paranasal sinuses or mastoid air cells. ADDITIONAL FINDINGS: Soft tissue in the external auditory canals is probably wax buildup. IMPRESSION: I do not see an acute parenchymal lesion in the brain. Signer Name: Dayna Horn MD Signed: 01/03/2019 5:57 PM Workstation Name: [id number] Transcribed By: BS Dictated By: Dayna Gallegos MD Electronically Authenticated By: Dayna Gallegos MD Signed Date/Time: 01/03/191756 DD/ 48 TD/TT: - Differential Diagnosis vertigo, symptomatic anemia, hyponatremia, intracranial mass Critical care attestation.: If time is entered above; I have spent that time in minutes in the direct care of this critically ill patient, excluding procedure time. ED Disposition Clinical Impression: Vertigo Disposition: DC-01 TO HOME OR SELFCARE Is pt being admited?: No Does the pt Need Aspirin: No Condition: Stable Instructions: Dizziness (ED), Vertigo (ED) Additional Instructions: Return to the emergency department immediately should you develop worsening symptoms, fever, inability to tolerate food or liquid or any other concerns. Prescriptions: Meclizine [Antivert] 25 mg PO TID PRN #20 tablet PRN Reason: Vertigo diazePAM TAB [Valium] 5 mg PO BID PRN #5 tablet PRN Reason: Vertigo Ondansetron [Zofran ODT TAB] 8 mg PO Q8HR #20 tab.rapdis Referrals: [facility] MD RYAN [Primary Care Provider] - 3-5 Days MELISSA FRANCO MD [Staff Physician] - 3-5 Days (Dr Franco is a neurologist. Please follow up with him for further evaluation) Time of Disposition: 19:32
[2019-01-03 14:15] LABS: Hematocrit 28.4 % (30.3-42.9); Hemoglobin 9.5 gm/dl (10.1-14.3); Mean Corpuscular HGB Conc 33 % (30-34); Mean Corpuscular Volume 84 fl (79-97); Platelet Count 194 K/mm3 (140-440); Red Blood Count 3.37 M/mm3 (3.65-5.03)
[2019-01-03 14:19] LABS: Red Cell Distribution Width 22.3 % (13.2-15.2)
[2019-01-03 14:31] LABS: Partial Thromboplastin Time < 20.0 Sec. (24.2-36.6)
[2019-01-03 15:28] LABS: Alanine Aminotransferase 11 units/L (7-56); Albumin 3.9 g/dL (3.9-5); BUN/Creatinine Ratio 15; Blood Urea Nitrogen 18 mg/dL (7-17); Calcium 8.9 mg/dL (8.4-10.2); Hemolysis Index 32
[2019-01-03 15:29] LABS: Alanine Aminotransferase 10 units/L (7-56); Albumin 3.9 g/dL (3.9-5); Bilirubin,Direct < 0.2 mg/dL (0-0.2)
[2019-01-03 16:11] LABS: Basophils % (Manual) 0 % (0.0-1.8); Large Platelets 1+; Total Cells Counted 100
[2019-01-03 16:12] LABS: Anisocytosis 1+; Platelet Estimate Consistent w Auto; Poikilocytosis 1+
[2019-01-03 16:20] LABS: Bilirubin,Urine NEG (Negative); Blood,Urine NEG (Negative); Color,Urine Yellow (Yellow); Protein,Urine <15 mg/dL mg/dL (Negative); Urobilinogen,Urine < 2.0 mg/dL (<2.0)
[2019-01-03 16:25] LABS: HCG Qualitative,Urine Negative (Negative)
[2019-01-03] MEDS ORDERED: NACL 0.9% 250ML 250 ML IV ONE (16:36)
--- NOTE | 2019-01-03 18:01 | Cat Scan Report ---
CT head/brain wo con INDICATION: dizziness. TECHNIQUE: Routine CT head without contrast. Sagittal and coronal reformatted images were obtained. A ll CT scans at this location are performed using CT dose reduction for ALARA by means of automated ex posure control. COMPARISON: FINDINGS: BRAIN / INTRACRANIAL CONTENTS: No acute hemorrhage, mass effect, midline shift, hydrocephalus, or acu te, large territorial infarct. No chronic infarct or focal atrophy. Normal brain volume and ventricul ar/sulcal size for age. No significant white matter abnormality. CRANIOCERVICAL JUNCTION: No significant abnormality. ORBITS: No significant abnormality of visualized orbits. SINUSES / MASTOIDS: No significant abnormality of the visualized paranasal sinuses or mastoid air sedrick ls. ADDITIONAL FINDINGS: Soft tissue in the external auditory canals is probably wax buildup. IMPRESSION: I do not see an acute parenchymal lesion in the brain. Signer Name: Dayna Horn MD Signed: 01/03/2019 5:57 PM Workstation Name: [id number]
--- NOTE | 2019-01-03 18:06 | Cat Scan Report ---
CTA CHEST WITH IV CONTRAST INDICATION: Dizziness since this morning. Elevated d-dimer. TECHNIQUE: Axial CT images were obtained through the chest after injection of 100 mL Omnipaque 350 IV contrast. 3 plane MIP reconstructions were produced. All CT scans at this location are performed using CT dose reduction for ALARA by means of automated exposure control. COMPARISON: None available. FINDINGS: PULMONARY ARTERIES: We will opacified without visualization of thromboemboli. AORTA AND ARTERIES: No significant abnormality of the aorta or great vessels. No significant coronary atherosclerosis is seen. MEDIASTINUM: The thyroid gland is unremarkable as visualized. The trachea and main bronchi are patent and normal in caliber. No mass or lymphadenopathy is seen. The heart is normal in size without a per icardial effusion. LUNGS: No suspicious consolidation, nodule or mass. No pneumothorax or pleural effusion. ADDITIONAL FINDINGS: None. UPPER ABDOMEN: No acute findings. BONES: No significant osseous abnormality. IMPRESSION: 1. No CT evidence for pulmonary embolism. 2. No acute findings. Signer Name: Maikel Penaloza MD Signed: 01/03/2019 6:01 PM Workstation Name: [id number]
[2019-01-03] MEDS ORDERED: ATIVAN IV ONE (18:28)
[2019-01-03] MEDS ORDERED: ZOFRAN IV ONE (18:28)
[2019-01-03 19:13] VITALS: BP 135/80
== END 2019-01-03 19:58 | disposition home or self-care (01) ==
LOC: ED 12:59
DX: R42 Dizziness and giddiness (principal); R61 Generalized hyperhidrosis; R11.0 Nausea; I11.0 Hypertensive heart disease with heart failure; I50.20 Unspecified systolic (congestive) heart failure; Z79.899 Other long term (current) drug therapy
CPT/HCPCS: 36415; 70450; 71275; 80053; 80076; 81001; 81025; 83880; 84484; 85007; 85025; 85379; 85610; 85730; 87086; 93005; 93010; 96361; 96374; 96375; 99284; J2060; J2405; J7050; Q9967